=== PATIENT | female | born 2000 | race American Indian/Alaskan Native ===

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

== ENCOUNTER 2020-04-12 16:29 | Emergency (ER) | payer SELFPAY ==
[2020-04-12] MEDS ORDERED: ACETAMINOPHEN 325 MG TAB PO PRN (17:09)
[2020-04-12] MEDS ORDERED: ALUM-MAG HYDROXIDE-SIMETHICONE 200-200-20MG/5ML ORAL LIQD 30 ML PO PRN (17:09)
[2020-04-12] MEDS ORDERED: MAGNESIUM HYDROXIDE (MOM) ORAL LIQD UDC PO PRN (17:09)
--- NOTE | 2020-04-12 17:14 | Emergency Department Report ---
ED Psych HPI - General Chief Complaint: Psych Stated Complaint: BEHAVIOR HEALTH Time Seen by Provider: 04/12/20 17:02 Source: patient, EMS Mode of arrival: Stretcher Limitations: No Limitations - History of Present Illness Initial Comments: Chief complaint: "I need answers." HPI: This is a 19-year-old female who presents via EMS. Crisis team evaluated patient at the home. According to form 1013 filled out by licensed professional counselor, patient has been unable to care for herself. She has not showered in a month. She is not eating or sleeping. She locked herself in her room for 2 weeks. Patient appeared to have disorganized thoughts. She appeared to respond to internal stimuli. Patient also according to documentation had auditory and visual hallucinations with possible convenience. Command hallucinations: voices telling her someone is trying to kill her. Patient states that she has been "evaluated" only twice for similar issues. She points to healed scars on her left forearm. She admitted to cutting herself on previous occasion several years ago. She also admitted to intentionally overdosing on ibuprofen in the past. Patient denies suicidal homicidal ideation. Patient does admit to auditory hallucinations. She states that she hears "Spanish and Arabic" voices. According to electronic medical record, patient was evaluated in 2017 here at this hospital for auditory hallucinations and suicide attempt via overdose. Patient was transferred to [facility] during that previous ED encounter Rosette states that she did not complete high school. She is not employed. She does endorse marijuana use. MD Complaint: altered mental status -: month(s) (1 month) Associated Psychiatric Symptoms: racing thoughts, auditory hallucinations History of same: Yes Quality: constant Improves With: none Associated Symptoms: denies other symptoms Treatments Prior to Arrival: other (EMS transport after mobile crisis unit assessment) - Related Data Home Medications Medication Instructions Recorded Confirmed Last Taken No Known Home Medications [No 08/20/16 08/20/16 Unknown Reported Home Medications] Allergies Allergy/AdvReac Type Severity Reaction Status Date / Time No Known Allergies Allergy Unverified 08/20/16 16:05 ED Review of Systems ROS: Stated complaint: BEHAVIOR HEALTH Other details as noted in HPI Comment: All other systems reviewed and negative Constitutional: denies: fever, malaise Respiratory: denies: cough Cardiovascular: denies: chest pain Gastrointestinal: denies: abdominal pain, nausea, vomiting Psychiatric: auditory hallucinations ED Past Medical Hx - Past Medical History Previous Medical History?: Yes Additional medical history: sickle cell trait - Surgical History Past Surgical History?: No - Social History Smoking Status: Never Smoker Substance Use Type: Marijuana - Medications Home Medications: Home Medications Medication Instructions Recorded Confirmed Last Taken Type No Known Home Medications [No 08/20/16 08/20/16 Unknown History Reported Home Medications] ED Physical Exam - General Limitations: No Limitations General appearance: alert, in no apparent distress, other (Disheveled appearance, poor hygiene evident, hair is not groomed,) - Head Head exam: Present: atraumatic, normocephalic - Eye Eye exam: Present: normal appearance - ENT ENT exam: Present: mucous membranes moist - Neck Neck exam: Present: normal inspection, full ROM - Respiratory Respiratory exam: Present: normal lung sounds bilaterally. Absent: respiratory distress, wheezes, rales, rhonchi - Cardiovascular Cardiovascular Exam: Present: regular rate, normal rhythm, normal heart sounds. Absent: systolic murmur, diastolic murmur, rubs, gallop - GI/Abdominal GI/Abdominal exam: Present: soft, normal bowel sounds. Absent: distended, tenderness, guarding, rebound - Extremities Exam Extremities exam: Present: normal inspection - Back Exam Back exam: Present: normal inspection - Neurological Exam Neurological exam: Present: alert, oriented X3 - Psychiatric Psychiatric exam: Present: other (Disorganized speech, circular pressured speech, poor insight) - Skin Skin exam: Present: warm, dry, intact, normal color. Absent: rash ED Course Vital Signs 04/12/20 16:43 Temperature 98.3 F Pulse Rate 90 Respiratory 20 Rate Blood Pressure 141/99 [Right] O2 Sat by Pulse 98 Oximetry ED Medical Decision Making - Lab Data Result diagrams: 04/12/20 17:17 04/12/20 17:17 - Medical Decision Making This is a 19-year-old female who presents with acute psychosis with similar presentation documented 2017 requiring inpatient psychiatric treatment. Patient is medically clear for psychiatric care. Awaiting treatment recommendations by mental health team. I have reviewed labs obtained. CBC chemistry serum toxicology all within normal limits with exception of mild leukocytosis. Without evidence of infection I do not suspect sepsis on clinical exam patient does not have evidence of infection or sepsis. Patient is medically clear for psychiatric care. Critical care attestation.: If time is entered above; I have spent that time in minutes in the direct care of this critically ill patient, excluding procedure time. ED Disposition Clinical Impression: Acute psychosis Condition: Stable Referrals: PRIMARY CARE, [Primary Care Provider] - 3-5 Days
[2020-04-12 17:29] LABS: Basophils # (Auto) 0.1 K/mm3 (0.0-0.1); Basophils % (Auto) 0.7 % (0.0-1.8); Eosinophils % (Auto) 0.2 % (0.0-4.3); Hematocrit 41.7 % (30.3-42.9); Hemoglobin 13.4 gm/dl (10.1-14.3); Lymphocytes # (Auto) 0.9 K/mm3 (1.2-5.4); Lymphocytes % (Auto) 7.4 % (13.4-35.0); Mean Corpuscular HGB Conc 32 % (30-34); Mean Corpuscular Volume 79 fl (79-97); Monocytes # (Auto) 0.7 K/mm3 (0.0-0.8); Platelet Count 337 K/mm3 (140-440); Red Blood Count 5.31 M/mm3 (3.65-5.03)
[2020-04-12 17:48] LABS: BUN/Creatinine Ratio 16; Blood Urea Nitrogen 14 mg/dL (7-17); Calcium 10.1 mg/dL (8.4-10.2); Hemolysis Index 5
[2020-04-13 09:21] LABS: Bacteria,Urine 3+ /HPF (Negative); Bilirubin,Urine NEG (Negative); Blood,Urine SM (Negative); Color,Urine Yellow (Yellow); Mucus,Urine 3+ /HPF; Urobilinogen,Urine < 2.0 mg/dL (<2.0)
[2020-04-13 09:31] LABS: Protein,Urine >500 mg/dL (Negative)
[2020-04-13 09:32] LABS: Amphetamine Screen,Urine PRESUMPTIVE NEGATIVE; Benzodiazepines Screen,Urine PRESUMPTIVE NEGATIVE; Cannabinoid Screen,Urine PRESUMPTIVE POSITIVE; Cocaine Screen,Urine PRESUMPTIVE NEGATIVE; Methadone Screen,Urine PRESUMPTIVE NEGATIVE; Opiate Screen,Urine PRESUMPTIVE NEGATIVE
--- NOTE | 2020-04-13 10:23 | Consultation ---
History of Present Illness - Reason for Consult Consult date: 04/13/20 Reason for consult: MHE Requesting physician: KIARA NGUYEN - History of Present Psychiatric Illness Per ED Provider: This is a 19-year-old female who presents via EMS. Crisis team evaluated patient at the home. According to form 1013 filled out by licensed professional counselor, patient has been unable to care for herself. She has not showered in a month. She is not eating or sleeping. She locked herself in her room for 2 weeks. Patient appeared to have disorganized thoughts. She appeared to respond to internal stimuli. Patient also according to documentation had auditory and visual hallucinations with possible convenience. Command hallucinations: voices telling her someone is trying to kill her. Patient states that she has been "evaluated" only twice for similar issues. She points to healed scars on her left forearm. She admitted to cutting herself on previous occasion several years ago. She also admitted to intentionally overdosing on ibuprofen in the past. Patient denies suicidal homicidal ideation. Patient does admit to auditory hallucinations. She states that she hears "Iraqi and Yoruba" voices. According to electronic medical record, patient was evaluated in 2017 here at this hospital for auditory hallucinations and suicide attempt via overdose. Patient was transferred to [facility] during that previous ED encounter PEr MHA: Pt is a 19 year old AA female; Pt reports that she has no mental health history (however per pt's chart she has a mental health hx with suicide attemps and self harm). Per triage note, "crisis management called ems tp pt home, pt parent states pt locked herself in room x 2 weeks and has not showered x 1 month." Pt has no current therapist; "That was years ago." Pt appears guarded. Pt appears to have disorganized thoughts and appears to be responding to internal stimuli. The pt is disheveled in appearance. Pt is experiencing "voices telling me someone is trying to kill me." Pt reports that she hears voices in "Iraqi and Yoruba." Pt is rolling eyes and making sarcastic comments throughout the assessment, but pt then responds off topic to other questions. When asking the pt why she has not showered in a month the pt stated, "this isn't my body." PT endorses active SI with command AH. The pt has been unable to care for herself per the family and the 1013 that was written by the PIGMENT GRINDER who is in the community and came with mobile crisis to the pt's home. The pt has locked herself in her room for 2 weeks and has not showered in a month. The pt is tearful and appears very depressed. Pt has a history of self harm via cutting aeb scars on arms. Pt also has had one suicide attempt in the past via overdose where the pt was admitted to [facility] (2017). Pt denies any thoughts or plans of harming others. Pt lives with her family. Pt is not employed and did not complete high school. PSYCH HPI Patient is a 19-year-old single unemployed -Maced[place] female who currently resides with mom with past psychiatric history of schizophrenia based on previous hospital records who presented from home accompanied by her mom and police with chief complaint of concern for acute psychosis with patient being unable to care for self. Patient endorses that she was in her room at the time the police had walked into the room and informed her that she appears to be talking to the wall because the mom had called the police earlier. Patient states that her current body is not real, she reports she had been speaking with her grandmother's who had informed patient that she will be cremated which made patient she started feeling a burning sensation from the inside and is why she says that her current body is not real. Patient said at the time of the event she was not watching TV or listening to anything but her mom was watching TV and she could hear words like "Yazmin joromeo jacobson" talking to her and she was like what is this. SHe saids [employer] Hoyos is creating a [employer] system, and just when her dad was about to explain everything to her including schizophrenia, she was picked up and brought to the hospital. PAST PSYCHIATRIC HISTORY Diagnoses: Schizophrenia Suicide attempts or Self-harm behavior: Yes Prior psychiatric hospitalizations: Yes Substance Abuse history: none reported Previous psychiatric medications tried: None reported Outpatient treatment: None reported PAST MEDICAL HISTORY: NOne reported Family Psychiatric History:SHe reports Dad had schizophrenia SOCIAL HISTORY Marital Status: single Living Arrangements: with mom Employment Status: unemployed Access to guns/weapons: none reported Education: High school History of Abuse: none reported Legal History: none reported REVIEW OF SYSTEMS Constitutional: Negative for weight loss ENT: Negative for stridor Respiratory: Negative for cough or hemoptysis All other systems reviewed and are negative MENTAL STATUS EXAMINATION General Appearance and Behavior: Age appropriate, good hygiene, wearing appropriate clothes, good eye contact, cooperative polite with questioning. Cooperation: Participating/engaged, Psychomotor Behavior: Psychomotor agitation, psychomotor retardation, unremarkable and within normal limits Mood: Good Affect and affective range: labile Thought Process: Illogical, Fragmented Thought Content: Illogical, Ideas of reference, Hallucinations including auditory, visual, Speech: Normal volume, Regular rate and rhythm, Intellectual Functioning: Average Suicidal Ideation:Suicidal Homicidal Ideation: Denies HI Impulse Control: Impaired Insight and Judgment: Limited insight and judgment Memory: Normal Attention: Normal Orientation: Alert, oriented Assessment and Plan - Psychiatric problem (1) Schizophrenia Current Visit: Yes Status: Acute Treatment Plan Started on [employer] MEDICATIONS: Risks, benefits and alternatives of medications discussed with the patient, questions answered and consent obtained from patient. PSYCHOTHERAPY: Supportive psychotherapy provided MEDICAL: Per primary team DELIRIUM PRECAUTIONS: Please re-orient patient frequently, keep lights on during the day, and minimize benzodiazepines and opiates as these medications could worsen patient's confusion. [employer]: DISPOSITION: Do Recommend acute inpatient psychiatric hospitalization at this time LEGAL STATUS: 1013 FOLLOW-UP: Will follow Thank you for the consult. Please contact with any questions and/or concerns. Medications and Allergies Allergies Allergy/AdvReac Type Severity Reaction Status Date / Time No Known Allergies Allergy Unverified 08/20/16 16:05 Home Medications Medication Instructions Recorded Confirmed Last Taken Type No Known Home Medications [No 08/20/16 08/20/16 Unknown History Reported Home Medications] Active Meds: Active Medications Acetaminophen (Tylenol) 650 mg PO Q4HR PRN PRN Reason: Pain MILD(1-3)/Fever >100.5/ROD Al Hydrox/Mg Hydrox/Simethicone (Alum-Mag Hydrox-Simeth [id number]/5ml) 30 ml PO Q4HR PRN PRN Reason: Indigestion Magnesium Hydroxide (Milk Of Magnesia) 30 ml PO Q12HR PRN PRN Reason: Constipation Mental Status Exam - Vital signs Last Vital Signs Temp 97.6 F 04/13/20 08:16 Pulse 80 04/13/20 08:16 Resp 18 04/13/20 08:16 BP 113/68 04/13/20 08:16 Pulse Ox 99 04/13/20 08:16 Results Result Diagrams: 04/12/20 17:17 04/12/20 17:17 Abnormal lab results 04/12/20 04/12/20 04/12/20 Range/Units 17:17 17:17 17:17 WBC 12.1 H (4.5-11.0) K/mm3 RBC 5.31 H (3.65-5.03) M/mm3 MCH 25 L (28-32) pg RDW 16.0 H (13.2-15.2) % Lymph % (Auto) 7.4 L (13.4-35.0) % Lymph # (Auto) 0.9 L (1.2-5.4) K/mm3 Seg Neutrophils % 85.7 H (40.0-70.0) % Seg Neutrophils # 10.3 H (1.8-7.7) K/mm3 Sodium 133 L (137-145) mmol/L Chloride 90.2 L (98-107) mmol/L Carbon Dioxide 18 L (22-30) mmol/L Urine WBC (Auto) (0.0-6.0) /HPF Salicylates < 0.3 L (2.8-20.0) mg/dL Acetaminophen (10.0-30.0) ug/mL 04/12/20 04/13/20 Range/Units 17:17 Unknown WBC (4.5-11.0) K/mm3 RBC (3.65-5.03) M/mm3 MCH (28-32) pg RDW (13.2-15.2) % Lymph % (Auto) (13.4-35.0) % Lymph # (Auto) (1.2-5.4) K/mm3 Seg Neutrophils % (40.0-70.0) % Seg Neutrophils # (1.8-7.7) K/mm3 Sodium (137-145) mmol/L Chloride (98-107) mmol/L Carbon Dioxide (22-30) mmol/L Urine WBC (Auto) 91.0 H (0.0-6.0) /HPF Salicylates (2.8-20.0) mg/dL Acetaminophen 5.0 L (10.0-30.0) ug/mL All other labs normal. Assessment and Plan - Psychiatric problem (1) Schizophrenia Current Visit: Yes Status: Acute
[2020-04-13] MEDS: ARIPiprazole 15 MG TAB PO SCH (12:15)
[2020-04-13] MEDS: NITROFURANTOIN MONOHYD/M-CRYST 100 MG CAP PO SCH (17:30)
[2020-04-14] MEDS: NITROFURANTOIN MONOHYD/M-CRYST 100 MG CAP PO SCH ×2 (05:10→18:00)
[2020-04-14] MEDS ORDERED: ONDANSETRON 4 MG/2 ML INJ IV ONE (07:07)
[2020-04-14] MEDS ORDERED: MORPHINE 4 MG/1 ML INJ IV ONE (07:08)
[2020-04-14] MEDS ORDERED: FAMOTIDINE 20 MG/2 ML INJ IV ONE (07:08)
--- NOTE | 2020-04-14 07:12 | Emergency Department Report ---
<DIAN GOLDBERG - Last Filed: 04/16/20 05:56> ED Abdominal Pain HPI - General Chief Complaint: Psych Stated Complaint: BEHAVIOR HEALTH Time Seen by Provider: 04/12/20 17:02 - Related Data Previous Rx's Medication Instructions Recorded Last Taken Type Nitrofurantoin Harris/M-Cryst 100 mg PO Q12H #14 capsule 04/15/20 Unknown Rx [Macrobid CAP] Allergies Allergy/AdvReac Type Severity Reaction Status Date / Time No Known Allergies Allergy Unverified 08/20/16 16:05 ED Past Medical Hx - Medications Home Medications: Home Medications Medication Instructions Recorded Confirmed Last Taken Type Nitrofurantoin Harris/M-Cryst 100 mg PO Q12H #14 capsule 04/15/20 Unknown Rx [Macrobid CAP] ED Course - Reevaluation(s) Reevaluation #2: 04/14/20 19:02 Patient remained stable. No nausea or vomiting. Right upper quadrant ultrasound reviewed and showed no evidence of cholelithiasis or acute cholecysti tis. ED Medical Decision Making - Lab Data Result diagrams: 04/14/20 07:24 04/14/20 07:24 ED Disposition Clinical Impression: Acute psychosis, Nausea and vomiting, UTI (urinary tract infection) Disposition: [id number]/TX-65 PSY HOSP/PSY UNIT Is pt being admited?: No Condition: Stable Instructions: Urinary Tract Infection in Women (ED) Additional Instructions: Rx as directed. Follow-up on your urine culture which will be ready in 2 to 3 days. Prescriptions: Nitrofurantoin Harris/M-Cryst [Macrobid CAP] 100 mg PO Q12H #14 capsule Referrals: PRIMARY CARE, [Primary Care Provider] - 3-5 Days <SHAUN GARCIA - Last Filed: 04/16/20 21:16> ED Abdominal Pain HPI - General Source: patient, EMS Mode of arrival: Stretcher Limitations: No Limitations - History of Present Illness Initial Comments: 19-year-old female currently in the ED under 1013 awaiting inpatient psychiatric treatment. Nurse approached me that patient has had nausea and vomiting therefore I reassessed patient. Patient states she has had 3 episode of nausea vomiting since yesterday. She complains of aching upper and mid abdominal pain and a "sick" feeling. She also complains of diarrhea without melena, hematochezia, or fever. She is currently receiving Macrobid for UTI and denies urinary symptoms. She denies previous abdominal surgeries Patient's labs reviewed and patient had a mild leukocytosis, mild low sodium, chloride, bicarb, and anion gap with UA suggestive of UTI with elevated ketones suggestive of dehydration Severity scale (0 -10): 0 ED Review of Systems ROS: Stated complaint: BEHAVIOR HEALTH Other details as noted in HPI Comment: All other systems reviewed and negative Constitutional: denies: fever, malaise Respiratory: denies: cough Cardiovascular: denies: chest pain Gastrointestinal: abdominal pain, nausea, vomiting, diarrhea Psychiatric: auditory hallucinations ED Past Medical Hx - Past Medical History Previous Medical History?: Yes Hx Psychiatric Treatment: Yes (depression, self harm cutting, Suicide attempt in 2017) Additional medical history: sickle cell trait - Surgical History Past Surgical History?: No - Social History Smoking Status: Never Smoker Substance Use Type: Marijuana ED Physical Exam - General Limitations: No Limitations - Other Other exam information: General: No acute distress Head: Atraumatic Eyes: normal appearance ENT: Moist mucous membranes Neck: Normal appearance, no midline tenderness Chest: Clear to auscultation bilaterally CV: Regular rate and rhythm Abdomen: Soft, normal bowel sounds, epigastric tenderness, left upper quadrant tenderness, nondistended, no rebound or guarding Back: Normal inspection Extremity: Normal inspection, full range of motion Neuro: Alert O x 3, no facial asymmetry, speech clear, no gross motor sensory deficit Psych: Appropriate behavior Skin: No rash ED Course Vital Signs 04/12/20 04/12/20 04/12/20 16:43 19:33 20:30 Temperature 98.3 F 98.0 F Pulse Rate 90 122 H 109 H Respiratory 20 18 Rate Blood Pressure 136/94 Blood Pressure 141/99 [Right] O2 Sat by Pulse 98 100 Oximetry 04/12/20 04/13/20 04/13/20 20:43 02:01 08:16 Temperature 98.0 F 97.6 F Pulse Rate 100 H 80 Respiratory 18 18 18 Rate Blood Pressure 126/86 Blood Pressure 113/68 [Right] O2 Sat by Pulse 100 97 99 Oximetry 04/13/20 04/14/20 04/14/20 19:36 02:35 07:08 Temperature 98.4 F 98.0 F Pulse Rate 119 H 102 H 101 H Respiratory 20 18 16 Rate Blood Pressure 110/70 116/88 Blood Pressure 110/80 110/60 [Right] O2 Sat by Pulse 99 100 100 Oximetry 04/14/20 04/14/20 04/15/20 14:41 20:21 02:22 Temperature 98.5 F 97.8 F Pulse Rate 103 H 96 H 108 H Respiratory 18 18 18 Rate Blood Pressure Blood Pressure 100/70 113/73 107/77 [Right] O2 Sat by Pulse 96 99 100 Oximetry 04/15/20 08:01 Temperature 97.9 F Pulse Rate 100 H Respiratory 16 Rate Blood Pressure 113/79 Blood Pressure [Right] O2 Sat by Pulse 100 Oximetry - Reevaluation(s) Reevaluation #1: 04/14/20 07:12 I reviewed patient's labs from yesterday. We will repeat labs today serum hCG will be performed. If negative CT abdomen and pelvis with IV contrast will be performed. Patient be treated with D5 NS due to ketones in urine/dehydration, IV Zofran, IV Pepcid, and IV morphine. Will reassess 04/14/20 09:16 Patient has been vomiting and received ordered meds less than 1 hour ago. Reglan and Benadryl ordered for additional symptomatic treatment 04/14/20 14:40 Nurse reports to me she has not had any additional nausea or vomiting since receiving Reglan and Benadryl. Patient still has mild tachycardia. CT report reviewed. Ultrasound pending. Patient does not have any elevated LFTs, leukocytosis has improved, and she has a normal lipase. Ultrasound will be performed to complete abdominal pain work-up for medical clearance. As needed Zofran will be ordered. Patient will be signed out to Dr Goldberg to follow-up on ultrasound report ED Medical Decision Making - Lab Data Result diagrams: 04/14/20 07:24 04/14/20 07:24 - Radiology Data Radiology results: report reviewed CT ABDOMEN AND PELVIS WITH CONTRAST INDICATION / CLINICAL INFORMATION: Unspecified abdominal pain with nausea and vomiting. TECHNIQUE: Axial CT images were obtained through the abdomen and pelvis after 100 cc Omnipaque [address] scans at this location are performed using CT dose reduction for ALARA by means of automated exposure control. COMPARISON: None available. FINDINGS: LOWER CHEST: No significant abnormality. LIVER: Probable focal fatty infiltration is seen along the medial segment of the left hepatic lobe adjacent to the falciform ligament. Periportal edema is nonspecific. No other significant abnormality. GALLBLADDER: The gallbladder is mildly edematous without visualization of stones . BILE DUCTS: No significant abnormality. PANCREAS: No significant abnormality. SPLEEN: No significant abnormality. ADRENALS: No significant abnormality. RIGHT KIDNEY / URETER: No significant abnormality. LEFT KIDNEY / URETER: No significant abnormality. STOMACH / SMALL BOWEL: There is nonspecific moderate thickening of the gastric antrum without other significant abnormalities of the stomach. No significant abnormalities of the small bowel. COLON: No significant abnormality. APPENDIX: No significant abnormality. PERITONEUM: No free fluid. No free air. No fluid collection. LYMPH NODES: No significant adenopathy. AORTA / ARTERIES: No significant abnormality. IVC / VEINS: No significant abnormality. URINARY BLADDER: Moderately distended without a distinct intraluminal abnorm ality or significant surrounding inflammation. REPRODUCTIVE ORGANS: No significant abnormality. ADDITIONAL FINDINGS: None. SKELETAL SYSTEM: No significant abnormality. IMPRESSION: 1. Nonspecific edematous appearance of the gallbladder without visualization of stones. If there is continued clinical concern, a gallbladder ultrasound would be helpful for further evaluation. 2. Nonspecific moderate thickening of the distal stomach could be secondary to underdistention or representing gastritis. 3. Nonspecific moderate distention of the urinary bladder. result added after my chart review on 04/16 ULTRASOUND ABDOMEN, LIMITED (RIGHT UPPER QUADRANT) INDICATION / CLINICAL INFORMATION: ruq, abnl gallbladder on ct. COMPARISON: Prior CT abdomen and pelvis dated 04/14/2020 FINDINGS: PANCREAS: Visualized portion shows no significant abnormality. LIVER: Focal fatty replacement noted hepatic segment 4 measuring 4.1 x 1.6 cm. GALLBLADDER: Thickening of the gallbladder wall measuring 3.5 mm at its greatest diameter. No evidence of pericholecystic fluid or gallstones. Sonographic Castillo sign was negative. BILE DUCTS: No significant abnormality. Common bile duct measures 2.6 mm. FREE FLUID: None. ADDITIONAL FINDINGS: Echogenic debris noted within the urinary bladder. IMPRESSION: 1. Nonspecific thickening of the gallbladder wall likely represents edema. There is no evidence of cholelithiasis or acute cholecystitis. 2. Focal fatty replacement noted in hepatic segment 4. Critical Care Time: No Critical care attestation.: If time is entered above; I have spent that time in minutes in the direct care of this critically ill patient, excluding procedure time.
[2020-04-14 07:44] LABS: Basophils % (Auto) 0.5 % (0.0-1.8); Eosinophils # (Auto) 0.2 K/mm3 (0.0-0.4); Eosinophils % (Auto) 2.2 % (0.0-4.3); Hematocrit 40.8 % (30.3-42.9); Hemoglobin 13.5 gm/dl (10.1-14.3); Lymphocytes # (Auto) 1.8 K/mm3 (1.2-5.4); Lymphocytes % (Auto) 18.9 % (13.4-35.0); Mean Corpuscular HGB Conc 33 % (30-34); Mean Corpuscular Volume 78 fl (79-97); Monocytes # (Auto) 0.7 K/mm3 (0.0-0.8); Monocytes % (Auto) 7.3 % (0.0-7.3); Platelet Count 318 K/mm3 (140-440); Red Blood Count 5.22 M/mm3 (3.65-5.03); Red Cell Distribution Width 15.5 % (13.2-15.2)
--- NOTE | 2020-04-14 07:52 | Progress Note ---
Subjective - Reason for Consult Consult date: 04/14/20 Reason for consult: MHE Requesting physician: KIARA NGUYEN (\) - Chief Complaint Chief complaint: Psych Progress Patient seen in room today, say she still feel the same about her body, doesnt feel real and does not belong to her, say she would like to go home and be in her room because thats the only place the truth gets revealed to her. Patient is currently being worked up by ED Provider for abdominal pain. REVIEW OF SYSTEMS Constitutional: Negative for weight loss ENT: Negative for stridor Respiratory: Negative for cough or hemoptysis All other systems reviewed and are negative MENTAL STATUS EXAMINATION General Appearance and Behavior: Age appropriate, good hygiene, wearing appropr iate clothes, good eye contact, cooperative polite with questioning. Cooperation: Participating/engaged, Psychomotor Behavior: Psychomotor agitation, psychomotor retardation, unremarkable and within normal limits Mood: Good Affect and affective range: labile Thought Process: Illogical, Fragmented Thought Content: Illogical, Ideas of reference, Hallucinations including auditory, visual, Speech: Normal volume, Regular rate and rhythm, Intellectual Functioning: Average Suicidal Ideation:Suicidal Homicidal Ideation: Denies HI Impulse Control: Impaired Insight and Judgment: Limited insight and judgment Memory: Normal Attention: Normal Orientation: Alert, oriented Assessment and Plan - Psychiatric problem (1) Schizophrenia Current Visit: Yes Status: Acute Treatment Plan Started on Abilify MEDICATIONS: Risks, benefits and alternatives of medications discussed with the patient, questions answered and consent obtained from patient. PSYCHOTHERAPY: Supportive psychotherapy provided MEDICAL: Per primary team DELIRIUM PRECAUTIONS: Please re-orient patient frequently, keep lights on during the day, and minimize benzodiazepines and opiates as these medications could worsen patient's confusion. CABINETMAKER APPRENTICE: DISPOSITION: Do Recommend acute inpatient psychiatric hospitalization at this time when medically cleared pending further medical evaluation LEGAL STATUS: 1013 FOLLOW-UP: Will follow Thank you for the consult. Please contact with any questions and/or concerns. Mental Status Exam - Vital signs Last Vital Signs Temp 98.0 F 04/14/20 02:35 Pulse 101 H 04/14/20 07:08 Resp 16 04/14/20 07:08 BP 110/60 04/14/20 07:08 Pulse Ox 100 04/14/20 07:08 Assessment and Plan - Patient Problems (1) Schizophrenia Current Visit: Yes Status: Acute
[2020-04-14] MEDS ORDERED: D5W/0.9% NACL 1,000 ML IV SCH ×2 (08:00)
[2020-04-14 08:05] LABS: Alanine Aminotransferase 14 units/L (7-56); Albumin 4.5 g/dL (3.9-5); BUN/Creatinine Ratio 19; Blood Urea Nitrogen 13 mg/dL (7-17); Calcium 10.3 mg/dL (8.4-10.2); Hemolysis Index 6
[2020-04-14] MEDS: diphenhydrAMINE 50 MG/ML VIAL IV ONE ×2 (10:14→10:51)
[2020-04-14] MEDS: METOCLOPRAMIDE 10 MG/2 ML INJ IV ONE ×2 (10:15→10:51)
--- NOTE | 2020-04-14 11:19 | Cat Scan Report ---
CT ABDOMEN AND PELVIS WITH CONTRAST INDICATION / CLINICAL INFORMATION: Unspecified abdominal pain with nausea and vomiting. TECHNIQUE: Axial CT images were obtained through the abdomen and pelvis after 100 cc Omnipaque [address] scans at this location are performed using CT dose reduction for ALARA by means of automated exposure control. COMPARISON: None available. FINDINGS: LOWER CHEST: No significant abnormality. LIVER: Probable focal fatty infiltration is seen along the medial segment of the left hepatic lobe ad jacent to the falciform ligament. Periportal edema is nonspecific. No other significant abnormality. GALLBLADDER: The gallbladder is mildly edematous without visualization of stones. BILE DUCTS: No significant abnormality. PANCREAS: No significant abnormality. SPLEEN: No significant abnormality. ADRENALS: No significant abnormality. RIGHT KIDNEY / URETER: No significant abnormality. LEFT KIDNEY / URETER: No significant abnormality. STOMACH / SMALL BOWEL: There is nonspecific moderate thickening of the gastric antrum without other s ignificant abnormalities of the stomach. No significant abnormalities of the small bowel. COLON: No significant abnormality. APPENDIX: No significant abnormality. PERITONEUM: No free fluid. No free air. No fluid collection. LYMPH NODES: No significant adenopathy. AORTA / ARTERIES: No significant abnormality. IVC / VEINS: No significant abnormality. URINARY BLADDER: Moderately distended without a distinct intraluminal abnormality or significant surr ounding inflammation. REPRODUCTIVE ORGANS: No significant abnormality. ADDITIONAL FINDINGS: None. SKELETAL SYSTEM: No significant abnormality. IMPRESSION: 1. Nonspecific edematous appearance of the gallbladder without visualization of stones. If there is c ontinued clinical concern, a gallbladder ultrasound would be helpful for further evaluation. 2. Nonspecific moderate thickening of the distal stomach could be secondary to underdistention or rep resenting gastritis. 3. Nonspecific moderate distention of the urinary bladder. Signer Name: Galen Zhou MD Signed: 04/14/2020 11:14 AM Workstation Name: [id number]
[2020-04-14] MEDS: ARIPiprazole 15 MG TAB PO SCH (11:21)
[2020-04-14] MEDS ORDERED: SODIUM CHLORIDE 0.9% 1000 ML 1,000 ML IV ONE (14:39)
[2020-04-14] MEDS ORDERED: ONDANSETRON 4 MG ODT TAB PO PRN (14:41)
--- NOTE | 2020-04-14 18:05 | Ultrasound Report ---
ULTRASOUND ABDOMEN, LIMITED (RIGHT UPPER QUADRANT) INDICATION / CLINICAL INFORMATION: ruq, abnl gallbladder on ct. COMPARISON: Prior CT abdomen and pelvis dated 04/14/2020 FINDINGS: PANCREAS: Visualized portion shows no significant abnormality. LIVER: Focal fatty replacement noted hepatic segment 4 measuring 4.1 x 1.6 cm. GALLBLADDER: Thickening of the gallbladder wall measuring 3.5 mm at its greatest diameter. No evidenc e of pericholecystic fluid or gallstones. Sonographic Castillo sign was negative. BILE DUCTS: No significant abnormality. Common bile duct measures 2.6 mm. FREE FLUID: None. ADDITIONAL FINDINGS: Echogenic debris noted within the urinary bladder. IMPRESSION: 1. Nonspecific thickening of the gallbladder wall likely represents edema. There is no evidence of ch olelithiasis or acute cholecystitis. 2. Focal fatty replacement noted in hepatic segment 4. Signer Name: Lavell Blas MD Signed: 04/14/2020 6:00 PM Workstation Name: [id number]
[2020-04-15] MEDS: NITROFURANTOIN MONOHYD/M-CRYST 100 MG CAP PO SCH (05:19)
[2020-04-15 08:04] VITALS: BP 113/79
--- NOTE | 2020-04-15 09:00 | Progress Note ---
Subjective - Reason for Consult Consult date: 04/15/20 Reason for consult: MHE Requesting physician: DIAN GOLDBERG - Chief Complaint Chief complaint: Psych Progress Patient seen and cleared for any acute intraabdominal process, also she has been accept today, patient still paranoid and obsessed with the idea that someone is expecting her to and hence checking up on her here. REVIEW OF SYSTEMS Constitutional: Negative for weight loss ENT: Negative for stridor Respiratory: Negative for cough or hemoptysis All other systems reviewed and are negative MENTAL STATUS EXAMINATION General Appearance and Behavior: Age appropriate, good hygiene, wearing appropriate clothes, good eye contact, cooperative polite with questioning. Cooperation: Participating/engaged, Psychomotor Behavior: Psychomotor agitation, psychomotor retardation, unremarkable and within normal limits Mood: Good Affect and affective range: labile Thought Process: Illogical, Fragmented Thought Content: Illogical, Ideas of reference, Speech: Normal volume, Regular rate and rhythm, Intellectual Functioning: Average Suicidal Ideation:Suicidal Homicidal Ideation: Denies HI Impulse Control: Impaired Insight and Judgment: Limited insight and judgment Memory: Normal Attention: Normal Orientation: Alert, oriented Assessment and Plan - Psychiatric problem (1) Schizophrenia Current Visit: Yes Status: Acute Treatment Plan Started on Abilify MEDICATIONS: Risks, benefits and alternatives of medications discussed with the patient, questions answered and consent obtained from patient. PSYCHOTHERAPY: Supportive psychotherapy provided MEDICAL: Per primary team DELIRIUM PRECAUTIONS: Please re-orient patient frequently, keep lights on during the day, and minimize benzodiazepines and opiates as these medications could worsen patient's confusion. VALET MANAGER: DISPOSITION: Do Recommend acute inpatient psychiatric hospitalization at this time when medically cleared pending further medical evaluation LEGAL STATUS: 1013 FOLLOW-UP: Will follow Thank you for the consult. Please contact with any questions and/or concerns. Mental Status Exam - Vital signs Last Vital Signs Temp 97.9 F 04/15/20 08:01 Pulse 100 H 04/15/20 08:01 Resp 16 04/15/20 08:01 BP 113/79 04/15/20 08:01 Pulse Ox 100 04/15/20 08:01 Assessment and Plan - Patient Problems (1) Schizophrenia Current Visit: Yes Status: Acute
[2020-04-15] MEDS: ARIPiprazole 15 MG TAB PO SCH (12:12)
== END 2020-04-15 12:58 ==
LOC: ED 16:29
DX: F23 Brief psychotic disorder (principal); F12.10 Cannabis abuse, uncomplicated
CPT/HCPCS: 36415; 74177; 76705; 80048; 80053; 80307; 81001; 83690; 83735; 84703; 85025; 87086; 96361; 96374; 96375; 99285; J1200; J2270; J2405; J2765; J7030; J7042; Q9967; 80320; G0480; Q0162

== ENCOUNTER 2021-01-19 09:13 | Emergency (ER) | payer OTHER, SELFPAY ==
[2021-01-19 10:16] LABS: BUN/Creatinine Ratio 11; Blood Urea Nitrogen 8 mg/dL (7-17); Calcium 10.9 mg/dL (8.4-10.2); Hemolysis Index 6
--- NOTE | 2021-01-19 10:35 | Emergency Department Report ---
ED Psych HPI - General Chief Complaint: Psych Stated Complaint: SIM EVBRIAN Time Seen by Provider: 01/19/21 09:48 Source: patient, EMS Mode of arrival: Ambulatory - History of Present Illness Initial Comments: Chief complaint: "It is just a spiritual." HPI: This is a 20-year-old female with history of schizophrenia, suicide attempt who presents with auditory hallucinations and racing thoughts. She reports a woman following her. She states that "there is a lot going on." Patient denies suicidal homicidal ideation. She did cut her wrist on yesterday in order "to feel better". She takes Abilify and 2 other medications. She arrived via EMS. Her mother contacted EMS. MD Complaint: other (Auditory hallucination) History of same: Yes Quality: constant Improves With: none Worsens With: none Associated Symptoms: denies other symptoms Treatments Prior to Arrival: other (EMS transport) - Related Data Previous Rx's Medication Instructions Recorded Last Taken Type Nitrofurantoin Jackson/M-Cryst 100 mg PO Q12H #14 capsule 04/15/20 Unknown Rx [Macrobid CAP] OLANzapine [ZyPREXA] 10 mg PO DAILY 30 Days #30 tablet 01/20/21 Unknown Rx Allergies Allergy/AdvReac Type Severity Reaction Status Date / Time No Known Allergies Allergy Unverified 08/20/16 16:05 ED Review of Systems ROS: Stated complaint: SIM EVBRIAN Other details as noted in HPI Comment: All other systems reviewed and negative Constitutional: denies: fever, malaise Respiratory: denies: cough, shortness of breath Cardiovascular: denies: chest pain Gastrointestinal: denies: abdominal pain, nausea, vomiting Skin: lesions ED Past Medical Hx - Past Medical History Previous Medical History?: Yes Hx Psychiatric Treatment: Yes (depression, self harm cutting, Suicide attempt in 2017) Additional medical history: Schizophrenia, sickle cell trait - Family History Family history: other (Father with history of schizophrenia) - Social History Smoking Status: Never Smoker Substance Use Type: Marijuana - Medications Home Medications: Home Medications Medication Instructions Recorded Confirmed Last Taken Type Nitrofurantoin Jackson/M-Cryst 100 mg PO Q12H #14 capsule 04/15/20 Unknown Rx [Macrobid CAP] OLANzapine [ZyPREXA] 10 mg PO DAILY 30 Days #30 tablet 01/20/21 Unknown Rx ED Physical Exam - General Limitations: No Limitations General appearance: alert, in no apparent distress - Head Head exam: Present: atraumatic, normocephalic - Eye Eye exam: Present: normal appearance - ENT ENT exam: Present: mucous membranes moist - Neck Neck exam: Present: normal inspection, full ROM - Respiratory Respiratory exam: Present: normal lung sounds bilaterally. Absent: respiratory distress, wheezes, rales, rhonchi - Cardiovascular Cardiovascular Exam: Present: regular rate, normal rhythm, normal heart sounds. Absent: systolic murmur, diastolic murmur, rubs, gallop - GI/Abdominal GI/Abdominal exam: Present: soft, normal bowel sounds. Absent: distended, tenderness, guarding, rebound - Extremities Exam Extremities exam: Present: normal inspection - Neurological Exam Neurological exam: Present: alert, oriented X3 - Psychiatric Psychiatric exam: Present: other (Labile affect, pressured circular speech, flight of ideas) - Skin Skin exam: Present: warm, dry, intact, normal color, other (Superficial linear excoriations left wrist). Absent: rash ED Course Vital Signs 01/19/21 01/19/21 01/20/21 09:24 20:18 02:08 Temperature 99.3 F 97.9 F 98.3 F Pulse Rate 72 92 H 107 H Respiratory 18 18 18 Rate Blood Pressure 134/90 Blood Pressure 98/63 128/91 [Left] O2 Sat by Pulse 100 98 98 Oximetry 01/20/21 09:08 Temperature 97.6 F Pulse Rate 64 Respiratory 18 Rate Blood Pressure Blood Pressure 120/88 [Left] O2 Sat by Pulse 96 Oximetry - Reevaluation(s) Reevaluation #1: 01/23/21 16:16 After 27 hours in the emergency department, patient cleared per psychiatric team for discharge home. Patient was given outpatient resources according to electronic medical record review. ED Medical Decision Making - Lab Data Result diagrams: 01/20/21 09:33 01/19/21 20:47 - Medical Decision Making This is a 20-year-old female who presents with acute psychosis. She has auditory hallucinations flight of ideas disorganized thought pattern. According to previous psychiatric consultation note, patient has been diagnosed with schizophrenia. ED hold in place. 1013 form completed Patient has superficial linear excoriations which does not need wound care. I have reviewed labs obtained. I suspect drug-induced leukocytosis which is common with psychotropic medications. I have ordered urinalysis and chest radiograph to rule out infection. Patient does not show signs of infection. Patient is medically clear for psychiatric care. Critical care attestation.: If time is entered above; I have spent that time in minutes in the direct care of this critically ill patient, excluding procedure time. ED Disposition Clinical Impression: Schizophrenia, Acute psychosis, Self-cutting of wrist Disposition: DC-01 TO HOME OR SELFCARE Is pt being admited?: No Does the pt Need Aspirin: No Condition: Stable Instructions: Schizophrenia Additional Instructions: Professional and Agency Contacts To help Resolve Crises(17/01) [place] Crisis Line: Suicide Prevention Line: Crisis Text Line: Text START to 881663 Emergency: 911 Outpatient COMMUNITY Behavioral Health Resources: [facility]: [facility] [address] [place], [place] [address] [facility] [address] [place] [address] [facility] - [address] [place] [address] Tuesday thru Tuesday - 8am - 5pm [facility] Address: [address] [place] [address] [place]: [facility] Address: [address] [place] [address] Tuesday thru Tuesday- 7am-2pm [facility] Address: [address] [place] [address] Tuesday thru Tuesday: 8:30AM-5PM OUTPATIENT MENTAL HEALTH RESOURCES [facility], [address] [place] [address] SUSAN Nelson MD: [address] [place], [place] [id number] [facility]: [address] [place] [address] [employer] [place], [place] [id number] [phone] [facility]: [address] [facility] [address] [place] [address] [facility] Healthcare: [address] [place] [address] [facility]: [address] [place], [place] Andres Salinas MD: [address] [facility] [address] [facility]: [address] [place], [place] [id number] [phone] [place] CRISIS AND ACCESS LINE: * In case of an emergency, please contact the following numbers: [place] Crisis and Access Line: Number: Crisis Text Line: (Text START) Number: 141724 Suicide Prevention Line: Number: Emergency Number: 911 SUBSTANCE ABUSE PROGRAMS: [facility]: Location: [place], [place] [facility] Address: [address] [place] [address] [facility] Recovery: Address: [address] [place] [address] [facility]: Address: [address] [place] [address] [facility] Community: Address: [address] [place] [address] [facility] Address: [address] [place] [id number]. Please contact above numbers to attempt placement into free based program. Medicaid Programs: [facility]: Address: [address] [place] [address] [facility]: Address: [address] [place] [address] Prescriptions: OLANzapine [ZyPREXA] 10 mg PO DAILY 30 Days #30 tablet [facility] - 3-5 Days PRIMARY CARE, [Primary Care Provider] - 3-5 Days
[2021-01-19 10:45] LABS: Basophils # (Auto) 0.1 K/mm3 (0.0-0.1); Basophils % (Auto) 0.4 % (0.0-1.8); Hematocrit 41.1 % (30.3-42.9); Hemoglobin 13.7 gm/dl (10.1-14.3); Lymphocytes % (Auto) 5.6 % (13.4-35.0); Mean Corpuscular HGB Conc 33 % (30-34); Mean Corpuscular Volume 76 fl (79-97); Monocytes # (Auto) 1.1 K/mm3 (0.0-0.8); Monocytes % (Auto) 5.9 % (0.0-7.3); Platelet Count 372 K/mm3 (140-440); Red Cell Distribution Width 16.8 % (13.2-15.2)
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
[2021-01-19 21:14] LABS: Basophils # (Auto) 0.1 K/mm3 (0.0-0.1); Basophils % (Auto) 0.4 % (0.0-1.8); Eosinophils % (Auto) 0.1 % (0.0-4.3); Hematocrit 39.2 % (30.3-42.9); Mean Corpuscular HGB Conc 33 % (30-34); Mean Corpuscular Volume 77 fl (79-97); Monocytes # (Auto) 1.6 K/mm3 (0.0-0.8); Monocytes % (Auto) 11.5 % (0.0-7.3); Platelet Count 319 K/mm3 (140-440); Red Blood Count 5.12 M/mm3 (3.65-5.03); Red Cell Distribution Width 16.8 % (13.2-15.2)
[2021-01-19 21:44] LABS: Alanine Aminotransferase 12 units/L (7-56); BUN/Creatinine Ratio 11; Blood Urea Nitrogen 9 mg/dL (7-17); Calcium 9.9 mg/dL (8.4-10.2); Hemolysis Index 2
[2021-01-19 22:06] LABS: Albumin 4.6 g/dL (3.9-5)
--- NOTE | 2021-01-19 22:12 | XRay Report ---
CHEST 2 VIEWS INDICATION / CLINICAL INFORMATION: elevated white count. COMPARISON: None available. FINDINGS: SUPPORT DEVICES: None. HEART / MEDIASTINUM: No significant abnormality. LUNGS / PLEURA: No significant pulmonary or pleural abnormality. No pneumothorax. ADDITIONAL FINDINGS: No significant additional findings. IMPRESSION: 1. No acute findings. Signer Name: Pablo Montes De Oca DO Signed: 01/19/2021 10:07 PM Workstation Name: [id number]
[2021-01-20 09:11] VITALS: BP 120/88
[2021-01-20 10:06] LABS: Basophils # (Auto) 0.1 K/mm3 (0.0-0.1); Basophils % (Auto) 0.7 % (0.0-1.8); Eosinophils # (Auto) 0.1 K/mm3 (0.0-0.4); Eosinophils % (Auto) 0.9 % (0.0-4.3); Hematocrit 41.9 % (30.3-42.9); Hemoglobin 13.3 gm/dl (10.1-14.3); Lymphocytes % (Auto) 16.1 % (13.4-35.0); Mean Corpuscular HGB Conc 32 % (30-34); Mean Corpuscular Volume 76 fl (79-97); Monocytes # (Auto) 1.4 K/mm3 (0.0-0.8); Monocytes % (Auto) 10.8 % (0.0-7.3); Platelet Count 358 K/mm3 (140-440); Red Blood Count 5.48 M/mm3 (3.65-5.03); Red Cell Distribution Width 16.8 % (13.2-15.2)
[2021-01-20 10:51] LABS: Bacteria,Urine 3+ /HPF (Negative); Bilirubin,Urine NEG (Negative); Blood,Urine LG (Negative); Color,Urine Red (Yellow); Mucus,Urine 2+ /HPF; Urobilinogen,Urine < 2.0 mg/dL (<2.0)
[2021-01-20 10:53] LABS: RBC,Urine > 182.0 /HPF (0.0-6.0)
[2021-01-20 10:56] LABS: HCG Qualitative,Urine Negative (Negative)
--- NOTE | 2021-01-20 11:07 | Progress Note ---
Subjective - Reason for Consult Consult date: 01/20/21 Reason for consult: Mental health evaluation - Chief Complaint Chief complaint: The patient was seen today, she reports doing well. She states sleep and appetite as good. She denies any current urge to cut, denies any current suicidal ideation and denies hallucinations. REVIEW OF SYSTEMS Constitutional: Negative for weight loss ENT: Negative for stridor Respiratory: Negative for cough or hemoptysis All other systems reviewed and are negative MENTAL STATUS EXAMINATION General Appearance and Behavior: Age appropriate, good hygiene, wearing roger ropriate clothes, sleeping, cooperative Cooperation: Participating/engaged Psychomotor Behavior: Normal Mood: Calm Affect and affective range: congruent with mood Thought Process: Goal directed Thought Content: Not SI Speech: Normal volume Suicidal Ideation: Denies Homicidal Ideation: Denies Hallucinations: Denies Delusions: None elicited Impulse Control: impaired Insight and Judgment: Limited insight and judgment, Memory: Normal Attention: Normal Orientation: Alert, oriented Assessment and Plan (1)Schizophrenia F20.9 Current Visit: Yes Status: Acute Treatment Plan Continue Zyprexa 10mg po daily Risks, benefits and alternatives of medications discussed with the patient, questions answered and consent obtained from patient. PSYCHOTHERAPY: Supportive psychotherapy provided MEDICAL: Per primary team DELIRIUM PRECAUTIONS: Please re-orient patient frequently, keep lights on during the day, and minimize benzodiazepines and opiates as these medications could worsen patient's confusion. EARLY CHILDHOOD SERVICES COORDINATOR: Per medical team DISPOSITION: Do not recommend acute inpatient psychiatric hospitalization at this time. The patient understands that if suicidal or homicidal thoughts are to arise he is to seek immediate assistance. The aerophysics engineer to place resources on the chart FOLLOW-UP: Will sign off Thank you for the consult. Please contact with any questions and/or concerns. Case staffed with Dr. Ayala Mental Status Exam - Vital signs Last Vital Signs Temp 97.6 F 01/20/21 09:08 Pulse 64 01/20/21 09:08 Resp 18 01/20/21 09:08 BP 120/88 01/20/21 09:08 Pulse Ox 96 01/20/21 09:08
[2021-01-20 11:09] LABS: Amphetamine Screen,Urine Negative; Benzodiazepines Screen,Urine Negative; Cocaine Screen,Urine Negative; Methadone Screen,Urine Negative; Opiate Screen,Urine Negative
[2021-01-20 11:40] LABS: Cannabinoid Screen,Urine PRESUMPTIVE POSITIVE
== END 2021-01-20 13:08 | disposition home or self-care (01) ==
LOC: ED 09:13 → EEVIPCON 09:13 → ED 01-20 13:08
DX: S61.519A Laceration without foreign body of unspecified wrist, initial encounter (principal); F25.9 Schizoaffective disorder, unspecified; F23 Brief psychotic disorder; F12.90 Cannabis use, unspecified, uncomplicated; Z20.822 Contact with and (suspected) exposure to COVID-19; Z79.899 Other long term (current) drug therapy; X58.XXXA Exposure to other specified factors, initial encounter; Y93.89 Activity, other specified; Y92.89 Other specified places as the place of occurrence of the external cause; Y99.8 Other external cause status
CPT/HCPCS: 36415; 71046; 80048; 80053; 80307; 81001; 81025; 84703; 85025; 87086; 99285; U0003; 80320; G0480